=== PATIENT | male | born 1970 | race Caucasian/White ===

== ENCOUNTER 2017-02-19 13:27 | Inpatient (IN) | payer OTHER ==
[~2017-02-19] VITALS: Ht 180.3 cm; Wt 129.4 kg
[2017-02-19 15:06] LABS: HEMATOCRIT 23.9 % (38.0-50.0); MCH 31.8 PG (29.0-34.0); MCHC 35.6 G/DL (30.0-36.0); MCV 89.5 FL (86-99); MEAN PLAT.VOLUME 9.6 uM^3 (9.0-12.4); NRBC (%) 0.2 /100 WBC (0-0); PLATELET COUNT 198 K/uL (156-360); RBC DIS.WIDTH-CV 12.2 % (11.8-14.6); RBC DIS.WIDTH-SD 39.4 % (39-53); RED BLOOD COUNT 2.67 M/uL (4.00-5.50); WHITE BLOOD COUNT 15.3 K/uL (4.1-10.2)
[2017-02-19 15:14] LABS: CHLORIDE 99 mEq/L (99-109); POTASSIUM 3.6 mEq/L (3.7-5.4); SODIUM 137 mEq/L (136-147)
[2017-02-19 15:15] LABS: GLUCOSE 115 mg/dL (70-99)
[2017-02-19 15:17] LABS: ANION GAP 14 MEQ/L (2-14)
[2017-02-19 15:19] LABS: GFR ESTIMATE (CALCULATED) > 59 mL/min/
[2017-02-19 15:20] LABS: UREA NITROGEN (BUN) 18 mg/dL (9-23)
[2017-02-19 15:27] LABS: TROP-I INTERPRETATION NEGATIVE; TROPONIN-I 0.09 ng/mL (0.0-0.30)
[2017-02-19 17:49] LABS: PROTHROMBIN TIME 11.5 SEC (10.2-12.9)
[2017-02-19 17:52] LABS: PTT 24.2 SEC (25-37)
[2017-02-19 19:00] VITALS: BP 126/65
[2017-02-20] VITALS (14 sets, daily range): BP systolic 118–171; BP diastolic 59–77
[2017-02-20 00:30] LABS: HEMATOCRIT 20.5 % (38.0-50.0); MCV 89.5 FL (86-99)
[2017-02-20 00:54] LABS: TROP-I INTERPRETATION NEGATIVE; TROPONIN-I 0.06 ng/mL (0.0-0.30)
[2017-02-20 04:06] LABS: TROP-I INTERPRETATION NEGATIVE; TROPONIN-I 0.05 ng/mL (0.0-0.30)
[2017-02-20 06:28] LABS: HEMATOCRIT 23.7 % (38.0-50.0); MCH 31.5 PG (29.0-34.0); MCHC 34.6 G/DL (30.0-36.0); MCV 91.2 FL (86-99); MEAN PLAT.VOLUME 9.7 uM^3 (9.0-12.4); NRBC (%) 0.6 /100 WBC (0-0); PLATELET COUNT 187 K/uL (156-360); RBC DIS.WIDTH-CV 12.4 % (11.8-14.6); RBC DIS.WIDTH-SD 40.7 % (39-53); WHITE BLOOD COUNT 11.6 K/uL (4.1-10.2)
[2017-02-20 06:45] LABS: PTT 23.5 SEC (25-37)
[2017-02-20 06:49] LABS: ALKALINE PHOSPHATASE 34 IU/L (3-129); ANION GAP 8 MEQ/L (2-14); CHLORIDE 99 MEQ/L (99-109); GFR ESTIMATE (CALCULATED) > 59 mL/min/; GLUCOSE 98 mg/dL (70-99); POTASSIUM 3.3 MEQ/L (3.7-5.4); SAMPLE HEMOLYSIS CHECK 0; SAMPLE ICTERIC CHECK 0; SAMPLE LIPEMIA CHECK 0; SODIUM 135 MEQ/L (136-147); TOTAL BILIRUBIN 0.9 MG/DL (0.0-1.0); UREA NITROGEN (BUN) 10 mg/dL (9-23)
[2017-02-20 16:57] LABS: HEMATOCRIT 26.1 % (38.0-50.0); MCV 91.6 FL (86-99)
[2017-02-21] VITALS: BP 125/68
[2017-02-21 03:51] VITALS: BP 109/51
[2017-02-21 06:17] LABS: HEMATOCRIT 24.4 % (38.0-50.0); MCH 31.6 PG (29.0-34.0); MCHC 34.4 G/DL (30.0-36.0); MCV 91.7 FL (86-99); MEAN PLAT.VOLUME 9.6 uM^3 (9.0-12.4); NRBC (%) 0.7 /100 WBC (0-0); PLATELET COUNT 170 K/uL (156-360); RBC DIS.WIDTH-CV 13.1 % (11.8-14.6); RBC DIS.WIDTH-SD 42.6 % (39-53); RED BLOOD COUNT 2.66 M/uL (4.00-5.50); WHITE BLOOD COUNT 7.2 K/uL (4.1-10.2)
[2017-02-21 06:50] LABS: ANION GAP 7 MEQ/L (2-14); CHLORIDE 105 MEQ/L (99-109); GFR ESTIMATE (CALCULATED) > 59 mL/min/; GLUCOSE 91 mg/dL (70-99); POTASSIUM 3.1 MEQ/L (3.7-5.4); SAMPLE HEMOLYSIS CHECK 0; SAMPLE ICTERIC CHECK 0; SAMPLE LIPEMIA CHECK 0; SODIUM 141 MEQ/L (136-147); UREA NITROGEN (BUN) 6 mg/dL (9-23)
[2017-02-21 07:21] VITALS: BP 114/70
[2017-02-21 09:24] LABS: MAGNESIUM 2.2 mg/dl (1.3-2.7)
[2017-02-21 11:47] LABS: HEMATOCRIT 23.4 % (38.0-50.0); MCV 92.1 FL (86-99)
[2017-02-21] MEDS ORDERED: FEOSOL325 MG PO (12:51)
[2017-02-21] MEDS ORDERED: PROTONIX40 MG PO (12:51)
== END 2017-02-21 14:50 | disposition home or self-care (01) | DRG 379 ==
LOC: EME 13:27 → EDOF 17:28 → 5SOUTH 17:28 → ENRESERV 17:31 → 5SOUTH 18:51
PROVIDERS: Emergency Medicine; Internal Medicine; Internal Medicine Gastroenterology
DX: K92.2 Gastrointestinal hemorrhage, unspecified (principal); D50.0 Iron deficiency anemia secondary to blood loss (chronic); K63.5 Polyp of colon; I10 Essential (primary) hypertension; E66.9 Obesity, unspecified; F10.10 Alcohol abuse, uncomplicated; D72.829 Elevated white blood cell count, unspecified; K29.70 Gastritis, unspecified, without bleeding; K64.8 Other hemorrhoids; Z87.891 Personal history of nicotine dependence; Z68.39 Body mass index [BMI] 39.0-39.9, adult; Z87.11 Personal history of peptic ulcer disease; Z98.84 Bariatric surgery status
CPT/HCPCS: 71020; 74176; 80048; 80053; 80069; 83735; 84484; 85014; 85018; 85027; 85610; 85730; 86850; 86900; 86901; 86920; 88305; 88342 TC; 93005; 99281; 99285; C9113; J2250; J3411; J7030; J7042; P9016

== ENCOUNTER 2017-04-11 06:45 | Emergency (ER) | payer OTHER ==
[~2017-04-11] VITALS: Ht 180.3 cm; Wt 126.7 kg
[~2017-04-11 06:45] MED LIST: FEOSOL325 MG PO; PROTONIX40 MG PO
[2017-04-11 06:48] VITALS: BP 147/98
== END 2017-04-11 07:39 | disposition left against medical advice (07) ==
LOC: EME 06:45
DX: F10.10 Alcohol abuse, uncomplicated (principal); F41.9 Anxiety disorder, unspecified; Z87.891 Personal history of nicotine dependence
CPT/HCPCS: 80053; 81003; 85027; G0480

== ENCOUNTER 2017-04-14 20:52 | Emergency (ER) | payer OTHER | END 2017-04-14 20:55 | disposition left against medical advice (07) | LOC: EME 20:52 | DX: R46.89 Other symptoms and signs involving appearance and behavior (principal); Z53.21 Procedure and treatment not carried out due to patient leaving prior to being seen by health care provider | CPT/HCPCS: 99281 ==